=== PATIENT | female | born 1950 | race Caucasian/White ===

== ENCOUNTER → 2016-09-01 | Outpatient (CLI) | payer MEDICARE ==
[~2016-09-01] MED LIST: ASP81CT PO; ATOR10TA56; ATOR10TA56 PO; BACI1CAP4 PO; BUSP10TA95; BUSP10TA95 PO; CA C1TAB84 PO; CHOL200025 PO; CINN500C14 PO; CLON1TAB3; CLON1TAB3 PO; DICY20TA10 PO; DULO60CA58 PO; EASY IRON; ECHI80CA PO; HCTZ12.5T; HYDR12.5 PO; INSU100V32 SQ; INSUSS SC; LEVEMIR (P10 UNIT/0.; LOSA100T8; MECO1POW4 MC; MILN50TA; MILN50TA PO; MULT-1034 PO; NFBIOT1000 PO; NFLYR75C; NFLYR75C PO; OMEP20CA12; ONDAN4ODT PO; TURM500C8 PO; [UNRECOGNIZED DRUG - OTHER]; omega xl
[2016-09-01 10:32] LABS: BASOPHILS % (AUTO) 1 % (0-2); EOSINOPHILS # (AUTO) 0.3 10^3uL; EOSINOPHILS % (AUTO) 3 % (0-4); LYMPHOCYTES # (AUTO) 3.3 X10^3; MEAN CORPUSCULAR HEMOGLOBIN 28.9 PG (26.0-34.0); MEAN CORPUSCULAR HGB CONC 34.7 g/dL (31.0-37.0); MEAN CORPUSCULAR VOLUME 83 FL (80-100); MEAN PLATELET VOLUME 10.3 FL (6.0-9.5); MONOCYTES # (AUTO) 0.7 X10^3; MONOCYTES % (AUTO) 8 % (3-11); NEUTROPHILS # (AUTO) 4.5 X10^3; NEUTROPHILS % (AUTO) 51 % (51-67); PLATELET COUNT 349 10^3uL (150-450); WHITE BLOOD COUNT 8.77 10^3uL (4.0-11.0)
[2016-09-01 10:43] LABS: MAGNESIUM* 1.8 mg/dL (1.6-2.3)
[2016-09-01 11:11] LABS: ERYTHROCYTE SEDIMENTATION RT* 7 mm/hr (0-23)
[2016-09-01 18:24] LABS: GGT 22 U/L (3-36)
[2016-09-01 19:07] LABS: VITAMIN B 12 >2000 pg/mL (213-816)
== END ==
LOC: LAB 10:16
PROVIDERS: ATTEND Family Medicine
DX: E78.2 Mixed hyperlipidemia (principal); D50.8 Other iron deficiency anemias; M35.3 Polymyalgia rheumatica; G72.0 Drug-induced myopathy; K71.2 Toxic liver disease with acute hepatitis; E13.65 Other specified diabetes mellitus with hyperglycemia; E83.42 Hypomagnesemia; D51.0 Vitamin B12 deficiency anemia due to intrinsic factor deficiency
CPT/HCPCS: 36415; 80061; 82550; 82607; 82977; 83036; 83735; 85025; 85652; 86803

== ENCOUNTER → 2016-09-21 | Outpatient (CLI) | payer MEDICARE, OTHER ==
[2016-09-21 09:36] LABS: ALBUMIN 4.3 g/dL (3.4-5.0); ANION GAP 19.4 MEQ/L (3-15); CALCULATED IONIZED CALCIUM 4.4 mg/dL (3.8-4.6); TOTAL PROTEIN 7.1 g/dL (6.4-8.5)
== END ==
LOC: LAB 09:00
PROVIDERS: ATTEND Family Medicine
DX: E11.65 Type 2 diabetes mellitus with hyperglycemia (principal)
CPT/HCPCS: 36415; 80053; 84439; 84443